=== PATIENT | female | born 1975 | race African-American/Black ===

== ENCOUNTER 2024-10-24 09:20 | Inpatient (IN) | payer OTHER ==
[2024-10-24 09:56] VITALS: BMI 23.1
[2024-10-24] MEDS ORDERED: guaiFENesin 600 MG TABLET.ER (FP) PO PRN (10:58)
[2024-10-24] MEDS ORDERED: ONDANSETRON *ODT* 4 MG TABLET SL PRN (10:58)
[2024-10-24] MEDS ORDERED: BISMUTH SUBSALICYLATE 262 MG/15 ML BTL PO PRN (10:58)
[2024-10-24] MEDS ORDERED: DICYCLOMINE HCL 10 MG CAPSULE PO PRN (10:58)
[2024-10-24] MEDS ORDERED: LOPERAMIDE HCL 2 MG CAPSULE PO PRN (10:58)
[2024-10-24] MEDS ORDERED: MAGNESIUM HYDROX 2400MG/30ML ORAL SUSPENSION 30 ML CUP PO PRN (10:58)
[2024-10-24] MEDS ORDERED: ACETAMINOPHEN 325 MG TABLET (FP) PO PRN (10:58)
[2024-10-24] MEDS ORDERED: NALOXONE (NARCAN) HCL 4 MG/0.1 ML SPRAY NS PRN (10:58)
[2024-10-24] MEDS ORDERED: BENZONATATE 200 MG CAPSULE PO PRN (10:58)
[2024-10-24] MEDS ORDERED: MAG HYDROX/AL HYDROX/SIMETH 30 ML UNIT-DOSE CUP PO PRN (10:58)
[2024-10-24] MEDS ORDERED: IBUPROFEN 400 MG TABLET (FP) PO PRN (10:58)
[2024-10-24] MEDS ORDERED: IBUPROFEN 600 MG TABLET (FP) PO PRN (10:58)
[2024-10-24] MEDS ORDERED: NICOTINE POLACRILEX 2 MG GUM BUC PRN (10:58)
[2024-10-24] MEDS ORDERED: POLYETHYLENE GLYCOL (HEALTHYLAX) 3350 17 GM PACKET PO PRN (10:58)
[2024-10-24] MEDS ORDERED: BENZOCAINE/MENTHOL (CHLORASEPTIC ) LOZENGE MM PRN (10:58)
[2024-10-24] MEDS ORDERED: hydrOXYzine PAMOATE 25 MG CAPSULE (FP) PO PRN (10:58)
[2024-10-24] MEDS ORDERED: chlordiazePOXIDE HCL 25 MG CAPSULE ONE (11:40)
[2024-10-24] MEDS: chlordiazePOXIDE HCL 25 MG CAPSULE PO SCH (11:41)
[2024-10-24] MEDS ORDERED: DIVALPROEX SODIUM 500 MG TABLET E.C. PO SCH (14:00)
[2024-10-24] MEDS: chlordiazePOXIDE HCL 25 MG CAPSULE PO PRN (15:12)
[2024-10-24] MEDS: DIVALPROEX SODIUM 500 MG TABLET E.C. PO SCH (22:25)
[2024-10-24] MEDS: METHOCARBAMOL 500 MG TABLET PO PRN (22:25)
[2024-10-24] MEDS: QUEtiapine FUMARATE 50 MG TABLET PO SCH (22:25)
[2024-10-24] MEDS: MELATONIN 5 MG TABLETS PO SCH (22:25)
[2024-10-24] MEDS: THIAMINE 100 MG TABLET PO SCH (22:25)
[2024-10-25] MEDS: NICOTINE 14 MG/24 HOURS TOPICAL PATCH TD SCH (10:13)
[2024-10-25] MEDS: PRENATAL VITAMINS W/ FOLIC ACID TABLET (FP) PO SCH (10:13)
[2024-10-25] MEDS: amLODIPine BESYLATE 5 MG TABLET (FP) PO SCH (10:13)
[2024-10-25] MEDS: FAMOTIDINE 20 MG TABLET PO SCH (10:13)
[2024-10-25] MEDS: FOLIC ACID 1 MG TABLET (FP) PO SCH (10:14)
[2024-10-25] MEDS: QUEtiapine FUMARATE 50 MG TABLET PO SCH (10:14)
[2024-10-25 10:35] LABS: HEMATOCRIT 33.4 % (32.4-45.2); HEMOGLOBIN 10.7 GM/dL (10.7-15.3); MCHC 32.1 g/dl (32.0-36.0); MEAN CELL VOLUME 96.5 fl (80-96); MEAN PLT VOLUME 9.7 fl (7.5-11.1); RBC 3.46 M/mm3 (3.60-5.2); RDW 13.7 % (11.6-15.6); WHITE BLOOD COUNT 5.4 K/mm3 (4.0-10.0)
[2024-10-25 10:37] LABS: POTASSIUM 3.2 mmol/L (3.5-5.1)
[2024-10-25 10:41] LABS: CALCIUM 8.4 mg/dL (8.5-10.1)
[2024-10-25 10:43] LABS: ALBUMIN 2.7 g/dl (3.4-5.0); BLOOD UREA NITROGEN 9.9 mg/dL (7-18)
[2024-10-25 10:45] LABS: CREATININE 0.7 mg/dL (0.55-1.3)
[2024-10-25 10:47] LABS: TOT PROT 6.5 g/dl (6.4-8.2)
[2024-10-25 11:31] LABS: PLATELET COUNT 97 10^3/uL (134-434)
[2024-10-25] MEDS: POTASSIUM CHLORIDE ORAL LIQUID 20 MEQ/15 ML PO ONE ×2 (11:44→17:40)
[2024-10-25] MEDS: LACTULOSE 20 GM/30 ML UDC (FOR ORAL USE ONLY) PO SCH (14:14)
[2024-10-26] MEDS: chlordiazePOXIDE HCL 25 MG CAPSULE PO SCH (06:00)
[2024-10-26 16:48] VITALS: TEMP 97.3
[2024-10-26 18:38] VITALS: BP 124/99; PULSE 95; RESP 18
[2024-10-27] MEDS ORDERED: chlordiazePOXIDE HCL 10 MG CAPSULE PO PRN
[2024-10-27] MEDS ORDERED: chlordiazePOXIDE HCL 10 MG CAPSULE PO SCH (05:00)
[2024-10-28] MEDS ORDERED: chlordiazePOXIDE HCL 10 MG CAPSULE PO SCH (05:00)
[2024-10-29] MEDS ORDERED: chlordiazePOXIDE HCL 10 MG CAPSULE PO ONE (05:00)
== END 2024-10-26 19:05 | disposition left against medical advice (07) | DRG 770 ==
LOC: YASAS 09:20 → Y3N 11:33
PROVIDERS: ADMIT Allergy & Immunology; ATTEND Surgery
PROC: HZ2ZZZZ Detoxification Services for Substance Abuse Treatment (ICD-10-PCS; principal; 2024-10-24)
DX: F10.230 Alcohol dependence with withdrawal, uncomplicated (principal); F17.210 Nicotine dependence, cigarettes, uncomplicated; F31.9 Bipolar disorder, unspecified; E72.20 Disorder of urea cycle metabolism, unspecified; E87.6 Hypokalemia; E11.9 Type 2 diabetes mellitus without complications; G47.00 Insomnia, unspecified; I10 Essential (primary) hypertension; K21.9 Gastro-esophageal reflux disease without esophagitis; M10.9 Gout, unspecified; R56.9 Unspecified convulsions
CPT/HCPCS: 36415; 80053; 80164; 80305; 80307; 81025; 82140; 82962; 84132; 85027; 86593; 86780; 93005; 93010